=== PATIENT | male | born 1955 | race Caucasian/White ===

== ENCOUNTER 2017-02-25 09:30 | Emergency (ER) | payer BC ==
[2017-02-25 10:51] VITALS: BP 133/66
--- NOTE | 2017-02-25 11:23 | UC ---
Abdominal Pain Male HPI - HPI Summary HPI Summary: 61 year old male with abdominal pain. LOWER LEFT ABD PAIN INTERMITTENTLY X1 MONTH OR MORE. C/O STRUGGLING WITH BM'S, NO PAIN DURING URINATION. NO TESTICULAR SWELLING. LLQ and flank pain that worsened 2 days ago. no recent seeded products. had neg colonoscopy last year. no fever. no blood in stool [ End ] - History of Current Complaint Chief Complaint: UCAbdominalPain Stated Complaint: PERSONAL Time Seen by Provider: 02/25/17 11:09 Hx Obtained From: Patient Hx From Patient Unobtainable Due To: Dementia Onset/Duration: Gradual Onset Timing: Constant Severity Initially: Mild Severity Currently: Moderate Location: Discrete At: LLQ Radiates: Yes Radiates to: Flank, LLQ Aggravating Factor(s): Nothing - Allergies/Home Medications Allergies/Adverse Reactions: Allergies Allergy/AdvReac Type Severity Reaction Status Date / Time No Known Allergies Allergy Verified 02/25/17 10:52 PMH/Surg Hx/FS Hx/Imm Hx Previously Healthy: Yes Psychological History: Depression, Other - parkinsons and dementia Other Psychological History: PD - Surgical History Surgical History: Yes Surgery Procedure, Year, and Place: cataract repair bilaterally - Social History Alcohol Use: None Substance Use Type: None Smoking Status (MU): Former Smoker Type: Cigarettes Amount Used/How Often: 1/7 PPD Length of Time of Smoking/Using Tobacco: On and off for 20 years Have You Smoked in the Last Year: Yes - Immunization History Most Recent Influenza Vaccination: NOT CURRENT Review of Systems Gastrointestinal: Abdominal Pain All Other Systems Reviewed And Are Negative: Yes Physical Exam Triage Information Reviewed: Yes Completion Of Physical Exam Limited Due To: Dementia Appearance: Well-Appearing, No Pain Distress, Well-Nourished Vital Signs: Initial Vital Signs Temp 96.8 F 02/25/17 10:45 Pulse 60 02/25/17 10:45 Resp 16 02/25/17 10:45 BP 133/66 02/25/17 10:45 Pulse Ox 100 02/25/17 10:45 Vital Signs Reviewed: Yes Eye Exam: Normal ENT Exam: Normal Dental Exam: Normal Neck exam: Normal Neck: Positive: 1 Respiratory Exam: Normal Cardiovascular Exam: Normal Abdominal Exam: Normal Abdomen Description: Positive: Soft, CVA Tenderness (L), McBurney's Point Tenderness, Other: - LLQ tenderness and left lateral / flank discomfort to palpation. Negative: No Organomegaly, Bruit, CVA Tenderness (R), Distended, Guarding, Hepatomegaly, Peritoneal Signs, Pulsatile Mass, Splenomegaly Musculoskeletal Exam: Normal Neurological Exam: Normal Psychological Exam: Normal Skin Exam: Normal Diagnostics - Laboratory Diagnostic Studies Completed/Ordered: IMPRESSION: LEFT NEPHROLITHIASIS INCLUDING A 0.2 CM LEFT UVJ CALCULUS WITH MINIMAL HYDRONEPHROSIS. Abd Pain Male Course/Dx - Course Course Of Treatment: with hematuria and LLQ / flank pain will order CT. patient not great at accurate symptoms due to dementia . - Differential Dx/Clinical Impression Differential Diagnosis/HQI/PQRI: Benign Prostatic Hyperplasia, Constipation, Diverticulitis, Epididymitis, Prostatitis, Ureteral Stone, Urinary Tract Infection Provider Diagnoses: kidney stone left sided Discharge - Discharge Plan Condition: Good Disposition: HOME Prescriptions: Tamsulosin CAP* [Flomax CAP*] 0.4 mg PO DAILY #14 cap Patient Education Materials: Kidney Stones (ED) Forms: *Work Release Referrals: Angela Springer PA [Primary Care Provider] - 4 Days Luther Villa MD [Medical Doctor] - 5 Days (Urology referral )
--- NOTE | 2017-02-25 12:23 | RAD ---
CLINICAL HISTORY: Left lower quadrant abdominal pain COMPARISON: None TECHNIQUE: Multiple contiguous axial CT scans were obtained of the abdomen and pelvis, without intravenous contrast enhancement. Coronal and sagittal multiplanar reformations are submitted for review. Oral contrast was not administered. The study is limited by the lack of intravenous contrast. This limits evaluation of the solid organs and vasculature. FINDINGS: LUNG BASES: The lung bases are clear. LIVER: The liver is normal in shape, size, contour, and attenuation. BILE DUCTS: There is no intrahepatic or extrahepatic biliary dilatation. GALLBLADDER: The gallbladder is incompletely distended but is grossly normal. PANCREAS: The pancreas is normal, without mass or ductal dilatation. SPLEEN: Normal in size and appearance. UPPER GI TRACT: Evaluation of the gastrointestinal tract is limited by incomplete gastric distention. There is a small sliding hiatal hernia. SMALL BOWEL AND MESENTERY: The small bowel is normal in contour, course, and caliber. There is no obstruction or dilatation. COLON: The colon is normal in contour, course, caliber. There is no pericolonic inflammatory change. ADRENALS: Normal bilaterally. KIDNEYS: There is a 0.3 cm calculus of the lower pole of the left kidney. There is a 0.2 cm calculus of the left UVJ. There is minimal hydroureter and pelviectasis. BLADDER: As noted above, there is a small left UVJ stone. PELVIC ORGANS: The prostate gland is normal. The seminal vesicles are symmetric. AORTA: The aorta is normal. IVC: Unremarkable LYMPH NODES: There is no lymphadenopathy by size criteria. ABDOMINAL WALL: There is no evidence for abdominal wall hernia. BONES AND SOFT TISSUES: Unremarkable OTHER: None IMPRESSION: LEFT NEPHROLITHIASIS INCLUDING A 0.2 CM LEFT UVJ CALCULUS WITH MINIMAL HYDRONEPHROSIS.
== END 2017-02-25 12:41 | disposition home or self-care (01) ==
LOC: UCCORT 09:30
DX: N20.0 Calculus of kidney (principal); Z87.891 Personal history of nicotine dependence
CPT/HCPCS: 74176; 81003; 99212; G0463